=== PATIENT | female | born 1955 | race African-American/Black ===

== ENCOUNTER 2017-01-21 06:23 | Day surgery (SDC) | payer BC ==
[~2017-01-21] VITALS: Ht 144.8 cm; Wt 69.8 kg
--- NOTE | ~2017-01-21 | EGD ---
EGD REPORT [facility] [address] [place]. [address] NAME: STEPHANIE DEL RIO : 55 STATUS : REG [facility]#: [id number] AGE: 61 ADM/REG DATE : 01/21/17 MR#: [id number] REPORT SERV DATE: 01/21/17 DICTATED BY: KATIE OSMAN DATE: 01/21/17 REPORT STATUS : Draft [facility]ANSCRIBED BY: [facility] DATE: 01/21/17 End[facility] Center Patient Name: Stephanie Del Rio Date of : 1955 Attending MD: KATIE OSMAN MD Procedure Date No Time: 01/21/2017 Procedure: Colonoscopy Indications: High risk colon cancer surveillance: Personal history of non-advanced adenoma; last exam September 2013. Patient Profile: Informed consent was obtained from the patient by me prior to the procedure. Risks, benefits, and alternatives were reviewed including the risk of bleeding, perforation, infection, reaction to medicine, missed lesion, and cardiopulmonary complications. Medicines: Monitored Anesthesia Care Complications: No immediate complications. Procedure: Pre-Anesthesia Assessment: - ASA Grade Assessment: III - A patient with severe systemic disease. After I obtained informed consent, the scope was passed under direct vision. Throughout the procedure, the patient's blood pressure, pulse, and oxygen saturations were monitored continuously. The PCF [id number] was introduced through the anus and advanced to the cecum, identified by appendiceal orifice and ileocecal valve. The colonoscope was slowly withdrawn with careful examination all mucosal surfaces including specific attention around flexures and tip deflection behind folds; retroflexion performed in rectum. The colonoscopy was performed without difficulty. The patient tolerated the procedure well. The quality of the bowel preparation was adequate. The ileocecal valve, appendiceal orifice and rectum were photographed. Findings: The colon (entire examined portion) appeared normal. Impression: - The entire examined colon is normal. Recommendation: - Patient has a contact number available for emergencies. The signs and symptoms of potential delayed complications were discussed with the patient. Return to normal activities tomorrow. Written discharge instructions were provided to the patient. - Regular diet. EGD REPORT [address] [address] NAME: STEPHANIE DEL RIO : 55 STATUS : REG [facility] [place] PAT#: [id number] AGE: 61 ADM/REG DATE : 01/21/17 MR#: [id number] REPORT SERV DATE: 01/21/17 DICTATED BY: KATIE OSMAN. DATE: 01/21/17 REPORT STATUS : Draft TRANSCRIBED BY: [employer] DATE: 01/21/17 - Continue present medications. - Repeat colonoscopy in 5 years for surveillance. Procedure Code(s): --- Professional --- 94587, Colonoscopy, flexible, proximal to splenic flexure; diagnostic, with or without collection of specimen(s) by brushing or washing, with or without colon decompression (separate procedure) Diagnosis Code(s): --- Professional --- Z86.010, Personal history of colonic polyps CPT copyright 2013 [employer] [employer]. All rights reserved. The codes documented in this report are preliminary and upon outsole flexer review may be revised to meet current compliance requirements. KATIE OSMAN MD 01/21/2017 9:02 AM This report has been signed electronically. Number of Addenda: 0 Note Initiated On: 01/21/2017 8:32 AM Scope Withdrawal Time 0 hours 8 minutes 30 seconds [id number] [id number]
[~2017-01-21 06:23] MED LIST: AMARYL4 PO; ASAB PO; GLUCOPHAGE1000 MG PO; LIPITOR20 PO; NOVLOGPUMP SC
== END 2017-01-21 23:59 | disposition home or self-care (01) ==
LOC: DMU 06:23
PROVIDERS: Internal Medicine Gastroenterology
PROC: 0DJD8ZZ Inspection of Lower Intestinal Tract, Via Natural or Artificial Opening Endoscopic (ICD-10-PCS; principal; 2017-01-21 07:00)
DX: Z12.11 Encounter for screening for malignant neoplasm of colon (principal); E11.9 Type 2 diabetes mellitus without complications; E78.00 Pure hypercholesterolemia, unspecified; R94.5 Abnormal results of liver function studies; Z90.710 Acquired absence of both cervix and uterus; Z98.890 Other specified postprocedural states
CPT/HCPCS: 82962